=== PATIENT | male | born 1990 | race Two or more races ===

== ENCOUNTER 2017-12-26 18:54 | Emergency (ER) | payer MEDICAID ==
[~2017-12-26] VITALS: Ht 180.3 cm; Wt 90.7 kg
[~2017-12-26 18:54] MED LIST: IBUPROFEN600 MG ORAL; KEFLEX500 MG ORAL
[2017-12-26 19:07] VITALS: BP 138/94
[2017-12-26] MEDS ORDERED: NKM (19:09)
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
[2017-12-26] MEDS ORDERED: ONDANSETRON ODT4 MG BC (19:51)
[2017-12-26 19:55] VITALS: BP 138/94
== END 2017-12-26 19:58 | disposition home or self-care (01) ==
LOC: EMR 19:30
DX: R11.10 Vomiting, unspecified (principal)
CPT/HCPCS: 99283

== ENCOUNTER 2018-02-19 12:38 | Emergency (ER) | payer MEDICAID ==
[~2018-02-19] VITALS: Ht 180.3 cm; Wt 81.6 kg
[~2018-02-19 12:38] MED LIST changes: +NKM; +ONDANSETRON ODT4 MG BC
[2018-02-19 12:49] VITALS: BP 142/96
--- NOTE | 2018-02-19 13:03 | Emergency Room Report ---
History of Present Illness General Chief Complaint: Upper Extremity Injury Source: Patient Present Illness HPI Patient is 27-year-old male who presents today with complaints of left hand pain that began last night. Patient states he was playing basketball and he accidentally jammed his left hand into the wall. He states that the pain is currently 5 out of 10 in severity, no medication has been taken. He states he has been "smoking weed" for the pain that with improvement. He denies any numbness, tingling, loss of sensation or associated symptoms. She has no significant medical problems and admits to smoking tobacco and marijuana. Allergies: Coded Allergies: No Known Allergies (Unverified , 04/25/16) Patient History Reviewed Nursing Documentation: PMH: Agreed; PSxH: Agreed Nursing Documentation-PMH Past Medical History: No Stated History Review of Systems Musculoskeletal: Reports: other - hand pain All Other Systems: negative except mentioned in HPI Physical Exam Vital Signs Date Time Temp Pulse Resp B/P (MAP) Pulse Ox O2 Delivery O2 Flow Rate FiO2 02/19/18 12:42 97.9 100 18 142/96 97 Room Air 97.9 Sp02 EP Interpretation: reviewed, normal General Appearance: no apparent distress, alert, GCS 15, non-toxic Head: normocephalic, atraumatic Eyes: bilateral eye normal inspection, bilateral eye PERRL ENT: hearing grossly normal, normal pharynx, no angioedema, normal voice Neck: full range of motion, supple/symm/no masses Respiratory: chest non-tender, lungs clear, normal breath sounds, speaking full sentences Cardiovascular #1: regular rate, rhythm, no edema Cardiovascular #2: 2+ carotid (R), 2+ carotid (L), 2+ radial (R), 2+ radial (L) , 2+ dorsalis pedis (R), 2+ dorsalis pedis (L) Gastrointestinal: normal bowel sounds, non tender, soft, non-distended, no guarding, no rebound Rectal: deferred Genitourinary: normal inspection, no CVA tenderness Musculoskeletal: back normal, gait/station normal, normal range of motion, non- tender, calf tenderness, other - edema and tenderness to palpation overlying the fifth metacarpal, full range of motion in all digits of the left hand, pulses are present and equal bilaterally, neurovascularly intact Neurologic: alert, oriented x3, responsive, motor strength/tone normal, sensory intact, speech normal Psychiatric: judgement/insight normal, memory normal, mood/affect normal, no suicidal/homicidal ideation Reflexes: 3+ bicep (R), 3+ bicep (L), 3+ tricep (R), 3+ tricep (L), 3+ knee (R) , 3+ knee (L) Skin: normal color, no rash, warm/dry, well hydrated Lymphatic: no adenopathy Procedures Joint Reduction Joint Reduction : Consent: Verbal Joint Reduction Site: other - boxers fracture Procedural Sedation: No Reduction Attempts: One Pre-Procedure NV Exam: Yes Post-Procedure NV Exam: Yes Post Joint Reduction Film: joint reduced Patient Tolerated: Well Complications: None Progress Hematoma block was performed using 1% lidocaine. The area is cleaned with Betadine and the joint was adequately anesthetized. The joint was reduced using the traction countertraction approach. Patient tolerated procedure well. Patient was then placed in a splint, neurovascularly intact before and after splint is placed. Medical Decision Making PA Attestation Supervising physician is Dr. Gonzalez Diagnostic Impression: Primary Impression: Boxers fracture ER Course Patient found to have a displaced boxer's fracture, was adequately reduced. Patient was then placed in a ulnar gutter splint, neurovascularly intact before and after splint is placed. Patient is given IM morphine with improvement of pain on reevaluation. Patient is instructed to follow up with orthostatic the next 4 days for reevaluation. Patient is transplanted is agreeable. Last Vital Signs Date Time Temp Pulse Resp B/P (MAP) Pulse Ox O2 Delivery O2 Flow Rate FiO2 02/19/18 12:49 97.9 76 18 142/96 97 Room Air 97.9 Status: improved Disposition: HOME, SELF-CARE Condition: Stable Scripts Hydrocodone Bit/Acetaminophen 5-325* (NORCO 5-325*) 1 Each Tablet 1 TAB ORAL Q4H PRN for For Pain, #20 TAB 0 Refills Prov: Lenka Short 02/19/18 Patient Instructions: Boxer's Fracture Lenka Short Feb 19, 2018 13:03
[2018-02-19] MEDS ORDERED: Morphine Sulfate 4mg/ml Inj (IV/IM USE ONLY) IM ONE (13:45)
--- NOTE | 2018-02-19 13:55 | Diagnostic Imaging Report ---
Indication: Reason For Exam: FX Technique: 3 views left hand Comparison: none Findings: There is a fracture of the distal fifth metacarpal. This is angulated anteriorly. No other acute fractures. No dislocations. Joint spaces are preserved. Impression: Positive for fifth metacarpal fracture. Findings discussed by phone with Lenka Zurita in the emergency room at the time of interpretation
[2018-02-19] MEDS ORDERED: NORCO 5-325 TA1 EACH ORAL (14:24)
[2018-02-19 14:32] VITALS: BP 132/76
== END 2018-02-19 14:32 | disposition home or self-care (01) ==
LOC: EMR 13:38
DX: S62.397A Other fracture of fifth metacarpal bone, left hand, initial encounter for closed fracture (principal); W22.01XA Walked into wall, initial encounter; Y93.67 Activity, basketball
CPT/HCPCS: 26605; 73130; 96372; 99283; J2270; Z7502